=== PATIENT | male | born 1990 | race Caucasian/White ===

== ENCOUNTER 2018-04-14 17:14 | Emergency (ER) | payer OTHER, MEDICAID ==
[2018-04-14] MEDS: IBUPROFEN 600 MG TAB PO (18:23)
[2018-04-14] MEDS ORDERED: BUPIVACAINE 0.25% (MPF) 10 ML 10 ML VIAL INJ (18:30)
[2018-04-14] MEDS: BUPIVACAINE 0.25% (MPF) 30 ML INJ INJ (18:45)
== END 2018-04-14 19:18 | disposition home or self-care (01) ==
LOC: FTE 17:14
DX: K04.7 Periapical abscess without sinus (principal)
CPT/HCPCS: 41800; 99283-25